=== PATIENT | female | born 1985 | race Caucasian/White ===

== ENCOUNTER 2016-12-27 16:29 | Emergency (ER) | payer SELFPAY ==
--- NOTE | 2016-12-27 16:52 | ER Document Report ---
ED Medical Screen (RME) - General Stated Complaint: EXCESSIVE LEG SWELLING Notes: 31 yo female with hx/o CHF c/o swelling to lower legs. legs are usually swollen, but noted weeping from legs x 24h. + increased shortness of breath, headaches x 3 days. Pt c/o constant, dull achy pain to both lower legs lungs CTA bilat. Sat 97% TRAVEL OUTSIDE OF THE [place] IN LAST 30 DAYS: No - Related Data Allergies/Adverse Reactions: adhesive [Adhesive] Allergy (Verified 12/27/16 16:48) house dust Allergy (Verified 12/27/16 16:48) mold Allergy (Uncoded 12/27/16 16:48) Paper tape Allergy (Uncoded 12/27/16 16:48) pollen Allergy (Uncoded 12/27/16 16:48) Past Medical History - Social History Family history: CAD, DM, Malignancy - Past Medical History Cardiac Medical History: Reports: Hx Congestive Heart Failure, Hx Hypertension Denies: Hx Hypercholesterolemia Pulmonary Medical History: Reports: Hx Asthma Denies: Hx Tuberculosis GI Medical History: Reports: Hx Gastroesophageal Reflux Disease Musculoskeltal Medical History: Reports Hx Arthritis Psychiatric Medical History: Reports: Hx Bipolar Disorder, Hx Depression Past Surgical History: Reports: Hx Cholecystectomy. Denies: Hx Pacemaker - Immunizations Immunizations up to date: No Hx Diphtheria, Pertussis, Tetanus Vaccination: Yes Physical Exam - Vital signs Vitals: Temp Pulse Resp BP Pulse Ox 99.0 F 81 18 158/89 H 97 12/27/16 16:45 12/27/16 16:45 12/27/16 16:45 12/27/16 16:45 12/27/16 16:45 Course - Vital Signs Vital signs: Temp Pulse Resp BP Pulse Ox 99.0 F 81 18 158/89 H 97 12/27/16 16:45 12/27/16 16:45 12/27/16 16:45 12/27/16 16:45 12/27/16 16:45
[2016-12-27 17:16] LABS: ABSOLUTE BASOPHILS # (AUTO) 0.1 10^3/uL (0.0-0.2); ABSOLUTE EOSINOPHILS # (AUTO) 0.1 10^3/uL (0.0-0.6); ABSOLUTE LYMPHOCYTES (AUTO) 2.7 10^3/uL (0.5-4.7); ABSOLUTE MONOCYTES (AUTO) 0.9 10^3/uL (0.1-1.4); ABSOLUTE NEUT (AUTO) 6.6 10^3/uL (1.7-8.2); BASOPHILS % (AUTO) 0.8 % (0-2); EOSINOPHILS % (AUTO) 1.2 % (0-6); HEMATOCRIT 35.3 % (36.0-47.0); HEMOGLOBIN 11.6 g/dL (12.0-15.5); HGB HCT DIFFERENCE -0.5; LYMPHOCYTES % (AUTO) 25.8 % (13-45); MEAN CORPUSCULAR HEMOGLOBIN 25.8 pg (27.0-33.4); MEAN CORPUSCULAR HGB CONC 32.8 g/dL (32.0-36.0); MEAN CORPUSCULAR VOLUME 79 fl (80-97); MONOCYTES % (AUTO) 8.7 % (3-13); RED BLOOD COUNT 4.47 10^6/uL (3.72-5.28); RED CELL DISTRIBUTION WIDTH 14.4 % (11.5-14.0); SEGMENTED NEUTROPHILS % (AUTO) 63.5 % (42-78); WHITE BLOOD COUNT 10.3 10^3/uL (4.0-10.5)
[2016-12-27 17:23] LABS: ALANINE AMINOTRANSFERASE 37 U/L (9-52); ALBUMIN 3.9 g/dL (3.5-5.0); ALKALINE PHOSPHATASE 53 U/L (38-126); ANION GAP 13 (5-19); ASPARTATE AMINO TRANSFERASE 23 U/L (14-36); BILIRUBIN,DIRECT 0.2 mg/dL (0.0-0.4); BILIRUBIN,TOTAL 0.3 mg/dL (0.2-1.3); BLOOD UREA NITROGEN 10 mg/dL (7-20); CALCIUM 9.3 mg/dL (8.4-10.2); CARBON DIOXIDE 26 mmol/L (22-30); CHLORIDE 104 mmol/L (98-107); CREATININE RESULT 0.58 mg/dL (0.52-1.25); GLUCOSE 94 mg/dL (75-110); POTASSIUM 4.2 mmol/L (3.6-5.0); SODIUM 142.5 mmol/L (137-145); TOTAL PROTEIN 6.9 g/dL (6.3-8.2)
[2016-12-27 20:40] LABS: APPEARANCE,URINE CLEAR; BILIRUBIN,URINE NEGATIVE (NEGATIVE); GLUCOSE, URINE NEGATIVE (NEGATIVE); KETONES,URINE NEGATIVE (NEGATIVE); LEUKOCYTE ESTERASE,URINE NEGATIVE (NEGATIVE); NITRITE,URINE NEGATIVE (NEGATIVE); PROTEIN,URINE NEGATIVE (NEGATIVE); URINE SPECIFIC GRAVITY 1.006; UROBILINOGEN,URINE NEGATIVE mg/dL (<2.0)
[2016-12-27] MEDS ORDERED: FUROSEMIDE 80 MG TABLET PO ONE (22:34)
--- NOTE | 2016-12-27 22:40 | ER Document Report ---
ED General - General Chief Complaint: Lip Swelling Stated Complaint: EXCESSIVE LEG SWELLING Notes: Patient is a 31-year-old female presents with complaint of excessive leg swelling. She has a long history of bilateral leg edema. She says it's been worse over last few days. 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 No difficulty breathing. She does have a history of diastolic heart failure. Because of this she takes 80 mg of Lasix every morning to help with her edema. She does not wear compression hose. She does not walk around much. She does not keep her legs elevated at night when sleeping. She's not had any recent changes in her Lasix dosage. She has no other complaints at this time. TRAVEL OUTSIDE OF THE [place] IN LAST 30 DAYS: No - Related Data Allergies/Adverse Reactions: adhesive [Adhesive] Allergy (Verified 12/27/16 16:48) house dust Allergy (Verified 12/27/16 16:48) mold Allergy (Uncoded 12/27/16 16:48) Paper tape Allergy (Uncoded 12/27/16 16:48) pollen Allergy (Uncoded 12/27/16 16:48) Past Medical History - Social History Smoking Status: Former Smoker Chew tobacco use (# tins/day): No Frequency of alcohol use: None Drug Abuse: None Family History: CAD, Hyperlipidemia, Hypertension, Other - Congestive heart failure Patient has suicidal ideation: No Patient has homicidal ideation: No - Past Medical History Cardiac Medical History: Reports: Hx Congestive Heart Failure, Hx Hypertension Denies: Hx Hypercholesterolemia Pulmonary Medical History: Reports: Hx Asthma Denies: Hx Tuberculosis Renal/ Medical History: Denies: Hx Peritoneal Dialysis GI Medical History: Reports: Hx Gastroesophageal Reflux Disease Musculoskeltal Medical History: Reports Hx Arthritis Psychiatric Medical History: Reports: Hx Bipolar Disorder, Hx Depression Past Surgical History: Reports: Hx Cholecystectomy. Denies: Hx Pacemaker - Immunizations Immunizations up to date: No Hx Diphtheria, Pertussis, Tetanus Vaccination: Yes Hx Pneumococcal Vaccination: 10/08/10 Review of Systems - Review of Systems Notes: My Normal Review Basic REVIEW OF SYSTEMS: CONSTITUTIONAL : Denies fever, chills, or sweats. Denies recent illness. EENT: Denies eye, ear, throat, or mouth pain or symptoms. Denies nasal or sinus congestion. RESPIRATORY: Denies cough, cold, or chest congestion. Denies shortness of breath, difficulty breathing, or wheezing. GASTROINTESTINAL: Denies abdominal pain. Denies nausea, vomiting, or diarrhea. Denies constipation. Last BM: GENITOURINARY: Denies difficulty urinating, painful urination, burning, frequency, or blood in urine. MUSCULOSKELETAL: Bilateral lower extremity edema. SKIN: Denies rash or skin lesions. NEUROLOGICAL: Denies altered mental status or loss of consciousness. ALL OTHER SYSTEMS REVIEWED AND NEGATIVE. Physical Exam - Vital signs Vitals: Temp Pulse Resp BP Pulse Ox 99.0 F 81 18 158/89 H 97 12/27/16 16:45 12/27/16 16:45 12/27/16 16:45 12/27/16 16:45 12/27/16 16:45 - Notes Notes: General Appearance: Well nourished, alert, cooperative, no acute distress, no obvious discomfort. Well-appearing. Vitals: reviewed, See vital signs table. Head: no swelling or tenderness to the head Eyes: PERRL, EOMI, Conjuctiva clear Neck: Supple, no neck tenderness, No thyromegaly Lungs: No wheezing, No rales, No rhonci, No accessory muscle use, good air exchange bilaterally. Heart: Normal rate, Regular rythm, No murmur, no rub Extremities: strength 5/5 in all extremities, good pulses in all extremities, no swelling or tenderness in the extremities, bilateral lower extremity edema that is 3+. Some weeping of clear fluid from the right leg. No skin breakdown. Skin: warm, dry, appropriate color, no rash Neuro: speech clear, oriented x 3, normal affect, responds appropriately to questions. Course - Vital Signs Vital signs: Temp Pulse Resp BP Pulse Ox 99.0 F 81 18 158/89 H 97 12/27/16 16:45 12/27/16 16:45 12/27/16 16:45 12/27/16 16:45 12/27/16 16:45 - Laboratory Result Diagrams: 12/27/16 16:55 12/27/16 16:55 Laboratory results interpreted by me: 12/27/16 16:55 Hgb 11.6 L Hct 35.3 L MCV 79 L MCH 25.8 L RDW 14.4 H - Transfer of Care Notes: 12/27/16 22:43 Patient will be discharged home. I will give her an extra dose of Lasix tonight. I'll have her start taking 40 mg at night injection with 80 mg sure he takes the morning. At a long discussion with her about the need to wear compression hose. 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 We will have her start wearing compression hose. I did write prescription for these. I encourage her to follow closely with her primary care doctor on Sunday so that he can recheck her potassium level to make sure that is not decreasing from the extra dose of Lasix. He should encouraged return to ER shows chest pain, difficulty breathing, or worsening swelling. Patient agrees with plan and will be discharged home. Dictation of this chart was performed using voice recognition software; therefore, there may be some unintended grammatical errors. Discharge - Discharge Clinical Impression: Leg edema Qualifiers: Laterality: bilateral Qualified Code(s): R60.0 - Localized edema Condition: Good Disposition: HOME, SELF-CARE Additional Instructions: Please start wearing compression hose. You need to wear these every day to help prevent increased swelling or edema in your legs. Please return to the ER immediately if you start having chest pain or shortness of breath. Please continue to take your 80 mg of Lasix in the morning and start taking 40 mg at night. Please follow-up with your doctor on Sunday so they can recheck your potassium level to make sure it is normal. Please return to ER immediately if you feel that your symptoms are worsening. Prescriptions: Extra Large Knee High Compression Hose 1 each [facility] DAILY #2 Furosemide [Lasix] 40 mg PO QPM #14 tablet Forms: Return to Work
[2016-12-27 23:06] VITALS: BP 150/91
== END 2016-12-27 23:06 | disposition home or self-care (01) ==
LOC: ER 16:29
DX: I11.0 Hypertensive heart disease with heart failure (principal); I50.30 Unspecified diastolic (congestive) heart failure; R60.0 Localized edema; J45.909 Unspecified asthma, uncomplicated; Z79.899 Other long term (current) drug therapy; Z91.048 Other nonmedicinal substance allergy status; Z87.891 Personal history of nicotine dependence
CPT/HCPCS: 36415; 71020; 80053; 81001; 83880; 84703; 85025; 99283

== ENCOUNTER 2017-01-09 13:16 | Emergency (ER) | payer SELFPAY ==
[2017-01-09 13:26] VITALS: BP 123/84
--- NOTE | 2017-01-09 13:44 | ER Document Report ---
ED Extremity Problem, Lower - General Mode of Arrival: Ambulatory Information source: Patient TRAVEL OUTSIDE OF THE [place] IN LAST 30 DAYS: No - HPI Patient complains to provider of: Swelling Location: Leg - bilateral Associated symptoms: Other - see notes above - General Chief Complaint: Leg Swelling Stated Complaint: LEG PAIN Notes: 31 year old female with history of CHF presents to the ED complaining of bilateral leg swelling and red "dots" with odorous drainage. Patient reports that she was at work when co-workers complained about the odor and asked her to get her legs evaluated and a note clearing her for work. Patient is complaining of minor itching to the bilateral legs. Patient denies any recent trip. Patient denies shortness of breath. Patient is on Lasix (80mg day, 40mg night). (SUSIE BERGMAN) - Related Data Allergies/Adverse Reactions: adhesive [Adhesive] Allergy (Verified 01/09/17 13:31) house dust Allergy (Verified 01/09/17 13:31) mold Allergy (Uncoded 01/09/17 13:31) Paper tape Allergy (Uncoded 01/09/17 13:31) pollen Allergy (Uncoded 01/09/17 13:31) Past Medical History - General Information source: Patient - Social History Smoking Status: Unknown if Ever Smoked Family History: CAD, Hyperlipidemia, Hypertension, Other - Congestive heart failure Patient has suicidal ideation: No Patient has homicidal ideation: No - Past Medical History Cardiac Medical History: Reports: Hx Congestive Heart Failure, Hx Hypertension Denies: Hx Hypercholesterolemia Pulmonary Medical History: Reports: Hx Asthma Denies: Hx Tuberculosis Renal/ Medical History: Denies: Hx Peritoneal Dialysis GI Medical History: Reports: Hx Gastroesophageal Reflux Disease Musculoskeltal Medical History: Reports Hx Arthritis Psychiatric Medical History: Reports: Hx Bipolar Disorder, Hx Depression Past Surgical History: Reports: Hx Cholecystectomy. Denies: Hx Pacemaker - Immunizations Immunizations up to date: No Hx Diphtheria, Pertussis, Tetanus Vaccination: Yes Hx Pneumococcal Vaccination: 10/08/10 Review of Systems - Review of Systems Constitutional: No symptoms reported EENT: No symptoms reported Cardiovascular: No symptoms reported Respiratory: No symptoms reported. denies: Short of breath Gastrointestinal: No symptoms reported Genitourinary: No symptoms reported Female Genitourinary: No symptoms reported Musculoskeletal: See HPI, Leg swelling - bilateral with odorous drainage Skin: See HPI, Lesions - bilateral legs Hematologic/Lymphatic: No symptoms reported Neurological/Psychological: No symptoms reported -: Yes All other systems reviewed and negative Physical Exam - General General appearance: Alert In distress: None - HEENT Head: Normocephalic, Atraumatic Eyes: Normal Extraocular movements intact: Yes Pupils: PERRL - Respiratory Respiratory status: No respiratory distress Breath sounds: Normal - Cardiovascular Rhythm: Regular Heart sounds: Normal auscultation - Abdominal Inspection: Normal - Back Back: Normal - Extremities General upper extremity: Normal inspection, Normal ROM General lower extremity: Edema - bilateral non-pitting edema with no sign of weeping or erythema., Other - Small lesions consistent with excoriation. No: Normal inspection - Neurological Neuro grossly intact: Yes Cognition: Normal Orientation: AAOx4 [place] Coma Scale Eye Opening: Spontaneous [place] Coma Scale Verbal: Oriented [place] Coma Scale Motor: Obeys Commands [place] Coma Scale Total: 15 Speech: Normal - Psychological Associated symptoms: Normal affect, Normal mood - Skin Skin Temperature: Warm Skin Moisture: Dry Skin Color: Normal Course - Re-evaluation Re-evalutation: 01/09/17 Patient appears well. Nonpitting edema of legs. Patient is already on 120 mg of Lasix daily. Has areas consistent with excoriation. Patient is in no acute distress. No evidence for heart failure exacerbation. The patient states that she was told at work that she has a smell. Is requesting a work for note that the smell is due to wheezing from her legs. The patient's legs are not weeping currently. I have told the patient that she is to wear compression stockings and in the meantime keep her legs covered so that she does not get an infection because she has some open excoriation areas. Patient is able to return to work otherwise. Appears well. Stable for discharge. (IKER LAGOS) - Vital Signs Vital signs: Temp Pulse Resp BP Pulse Ox 98.5 F 88 14 123/84 95 01/09/17 13:23 01/09/17 13:23 01/09/17 13:23 01/09/17 13:23 01/09/17 13:23 Discharge - Discharge Clinical Impression: Leg swelling Condition: Stable Disposition: HOME, SELF-CARE Instructions: Dependent Edema ([facility]) Additional Instructions: Please keep the legs covered so that they do not become infected. Please start wearing compression stockings as soon as you are able. In the meantime, you can wear Howie bandages. Please start at the bottom of your leg and work your way up with the HOWIE wrap. Forms: Return to Work Scribe Attestation: 01/09/17 20:15 I personally performed the services described in the documentation, reviewed and edited the documentation which was dictated to the scribe in my presence, and it accurately records my words and actions. (IKER LAGOS) Scribe Documentation - Scribe Written by Marisol:: Marisol Lopez, 01/09/2017 1422 acting as scribe for :: Cady
--- NOTE | 2017-01-09 13:46 | ER Document Report ---
ED Extremity Problem, Lower - General Chief Complaint: Leg Swelling Stated Complaint: LEG PAIN TRAVEL OUTSIDE OF THE [place] IN LAST 30 DAYS: No - Related Data Allergies/Adverse Reactions: adhesive [Adhesive] Allergy (Verified 01/09/17 13:31) house dust Allergy (Verified 01/09/17 13:31) mold Allergy (Uncoded 01/09/17 13:31) Paper tape Allergy (Uncoded 01/09/17 13:31) pollen Allergy (Uncoded 01/09/17 13:31) Past Medical History - Social History Family History: CAD, Hyperlipidemia, Hypertension, Other - Congestive heart failure Patient has suicidal ideation: No Patient has homicidal ideation: No - Past Medical History Cardiac Medical History: Reports: Hx Congestive Heart Failure, Hx Hypertension Denies: Hx Hypercholesterolemia Pulmonary Medical History: Reports: Hx Asthma Denies: Hx Tuberculosis Renal/ Medical History: Denies: Hx Peritoneal Dialysis GI Medical History: Reports: Hx Gastroesophageal Reflux Disease Musculoskeltal Medical History: Reports Hx Arthritis Psychiatric Medical History: Reports: Hx Bipolar Disorder, Hx Depression Past Surgical History: Reports: Hx Cholecystectomy. Denies: Hx Pacemaker - Immunizations Immunizations up to date: No Hx Diphtheria, Pertussis, Tetanus Vaccination: Yes Hx Pneumococcal Vaccination: 10/08/10 Physical Exam - Vital signs Vitals: Temp Pulse Resp BP Pulse Ox 98.5 F 88 14 123/84 95 01/09/17 13:23 01/09/17 13:23 01/09/17 13:23 01/09/17 13:23 01/09/17 13:23 Course - Vital Signs Vital signs: Temp Pulse Resp BP Pulse Ox 98.5 F 88 14 123/84 95 01/09/17 13:23 01/09/17 13:23 01/09/17 13:23 01/09/17 13:23 01/09/17 13:23 Discharge - Discharge Clinical Impression: Leg swelling Condition: Stable Disposition: HOME, SELF-CARE Instructions: Dependent Edema ([facility]) Additional Instructions: Please keep the legs covered so that they do not become infected. Please start wearing compression stockings as soon as you are able. In the meantime, you can wear Howie bandages. Please start at the bottom of your leg and work your way up with the HOWIE wrap. Forms: Return to Work
== END 2017-01-09 13:53 | disposition home or self-care (01) ==
LOC: ER 13:16
DX: M79.89 Other specified soft tissue disorders (principal); M79.604 Pain in right leg; M79.605 Pain in left leg; Z79.899 Other long term (current) drug therapy
CPT/HCPCS: 99283

== ENCOUNTER 2017-02-27 16:45 | Emergency (ER) | payer SELFPAY ==
[2017-02-27] MEDS ORDERED: ASPIRIN 81 MG TABLET, CHEWABLE PO ONE (18:33)
--- NOTE | 2017-02-27 18:33 | ER Document Report ---
ED Medical Screen (RME) - General TRAVEL OUTSIDE OF THE [place] IN LAST 30 DAYS: No <PRAKASH KNIGHT - Last Filed: 02/27/17 20:38> <RUPALI RODRIGUEZ - Last Filed: 02/27/17 21:02> - General Chief Complaint: Edema Stated Complaint: FEET,HANDS,LEGS SWELLING,HEADACHE Time Seen by Provider: 02/27/17 18:27 Notes: 31-year-old female presenting to the emergency department for lower extremity edema and hand swelling. Patient has history of CHF with her last flareup being 1 year ago. Patient states she takes 120 mg of Lasix per day; 60 mg in the morning and 60 mg in the afternoon. Patient states she also has some shortness of breath with movement/activity. When she lays flat she has a dry cough. Patient also has had some chest pain over the past 3 days. Patient is a former smoker and states on rare occasions she uses marijuana for her anxiety. Patient's mother and father have because of cardiac related problems. (PRAKASH KNIGHT) - Related Data Allergies/Adverse Reactions: adhesive [Adhesive] Allergy (Verified 01/09/17 13:31) house dust Allergy (Verified 01/09/17 13:31) mold Allergy (Uncoded 01/09/17 13:31) Paper tape Allergy (Uncoded 01/09/17 13:31) pollen Allergy (Uncoded 01/09/17 13:31) Past Medical History - Social History Family history: CAD, DM, Malignancy - Past Medical History Cardiac Medical History: Reports: Hx Congestive Heart Failure, Hx Hypertension Pulmonary Medical History: Reports: Hx Asthma Renal/ Medical History: Denies: Hx Peritoneal Dialysis GI Medical History: Reports: Hx Gastroesophageal Reflux Disease Musculoskeltal Medical History: Reports Hx Arthritis Psychiatric Medical History: Reports: Hx Bipolar Disorder, Hx Depression Past Surgical History: Reports: Hx Cholecystectomy. Denies: Hx Pacemaker - Immunizations Immunizations up to date: No Hx Diphtheria, Pertussis, Tetanus Vaccination: Yes <PRAKASH KNIGHT - Last Filed: 02/27/17 20:38> Physical Exam <PRAKASH KNIGHT - Last Filed: 02/27/17 20:38> <RUPALI RODRIGUEZ - Last Filed: 02/27/17 21:02> - Vital signs Vitals: Temp Pulse Resp BP Pulse Ox 97.9 F 75 18 149/79 H 100 02/27/17 17:24 02/27/17 17:24 02/27/17 17:24 02/27/17 17:24 02/27/17 17:24 - Notes Notes: GENERAL: Alert, interacts well. No acute distress. LUNGS: Clear to auscultation bilaterally, no wheezes, rales, or rhonchi. No respiratory distress. HEART: Regular rate and rhythm. No murmurs, gallops, or rubs. EXTREMITIES: Moves all 4 extremities spontaneously. 3+ pitting edema to the lower extremities bilaterally extending past the knee. Swelling in the fingers but able to remove rings. NEUROLOGICAL: Alert and oriented x3. Normal speech. (PRAKASH KNIGHT) Course - Laboratory Result Diagrams: 02/27/17 18:55 02/27/17 18:55 <PRAKASH KNIGHT - Last Filed: 02/27/17 20:38> - Laboratory Result Diagrams: 02/27/17 18:55 02/27/17 18:55 <RUPALI RODRIGUEZ - Last Filed: 02/27/17 21:02> - Vital Signs Vital signs: Temp Pulse Resp BP Pulse Ox 97.9 F 75 21 H 145/81 H 98 02/27/17 17:24 02/27/17 17:24 02/27/17 19:36 02/27/17 19:30 02/27/17 19:36 - Laboratory Laboratory results interpreted by me: 02/27/17 02/27/17 02/27/17 18:55 18:55 18:55 MCH 25.9 L RDW 15.0 H BUN 6 L ALT 54 H NT-Pro-B Natriuret Pep 266 H Scribe Documentation - Scribe Written by Scribe:: Marisol Tena, 02/27/17 19:00 acting as scribe for :: Erin <PRAKASH KNIGHT - Last Filed: 02/27/17 20:38>
[2017-02-27 19:08] LABS: ABSOLUTE BASOPHILS # (AUTO) 0.1 10^3/uL (0.0-0.2); ABSOLUTE EOSINOPHILS # (AUTO) 0.2 10^3/uL (0.0-0.6); ABSOLUTE LYMPHOCYTES (AUTO) 2.6 10^3/uL (0.5-4.7); ABSOLUTE MONOCYTES (AUTO) 0.5 10^3/uL (0.1-1.4); ABSOLUTE NEUT (AUTO) 6.1 10^3/uL (1.7-8.2); BASOPHILS % (AUTO) 0.7 % (0-2); EOSINOPHILS % (AUTO) 1.7 % (0-6); HEMATOCRIT 38.5 % (36.0-47.0); HEMOGLOBIN 12.5 g/dL (12.0-15.5); MEAN CORPUSCULAR HEMOGLOBIN 25.9 pg (27.0-33.4); MEAN CORPUSCULAR HGB CONC 32.6 g/dL (32.0-36.0); MEAN CORPUSCULAR VOLUME 80 fl (80-97); RED BLOOD COUNT 4.85 10^6/uL (3.72-5.28); SEGMENTED NEUTROPHILS % (AUTO) 64.6 % (42-78); WHITE BLOOD COUNT 9.4 10^3/uL (4.0-10.5)
--- NOTE | 2017-02-27 19:21 | EKG REPORT ---
SEVERITY:- ABNORMAL ECG - SINUS RHYTHM NONSPECIFIC INTRAVENTRICULAR CONDUCTION DELAY INFERIOR Q WAVES, PROBABLY NORMAL VARIATION : Confirmed by: Tay Barron MD 27-Feb-2017 19:20:23
--- NOTE | 2017-02-27 19:23 | RADIOLOGY REPORT (SQ) ---
EXAM DESCRIPTION: CHEST SINGLE VIEW COMPLETED DATE/TIME: 02/27/2017 7:14 pm REASON FOR STUDY: increasing edema, chest pain COMPARISON: 12/27/2016 EXAM PARAMETERS: NUMBER OF VIEWS: One view. TECHNIQUE: Single frontal radiographic view of the chest acquired. RADIATION DOSE: NA LIMITATIONS: None. FINDINGS: LUNGS AND PLEURA: No opacities, masses or pneumothorax. No pleural effusion. MEDIASTINUM AND HILAR STRUCTURES: No masses. Contour normal. HEART AND VASCULAR STRUCTURES: Heart normal in size. Normal vasculature. BONES: No acute findings. HARDWARE: None in the chest. OTHER: No other significant finding. IMPRESSION: NO ACUTE RADIOGRAPHIC FINDING IN THE CHEST. TECHNICAL DOCUMENTATION: JOB ID: [id number]
[2017-02-27 19:24] LABS: ALANINE AMINOTRANSFERASE 54 U/L (9-52); ALBUMIN 3.9 g/dL (3.5-5.0); ALKALINE PHOSPHATASE 58 U/L (38-126); ANION GAP 8 (5-19); ASPARTATE AMINO TRANSFERASE 29 U/L (14-36); BILIRUBIN,DIRECT 0.4 mg/dL (0.0-0.4); BILIRUBIN,TOTAL 0.5 mg/dL (0.2-1.3); BLOOD UREA NITROGEN 6 mg/dL (7-20); CALCIUM 9.3 mg/dL (8.4-10.2); CARBON DIOXIDE 29 mmol/L (22-30); CHLORIDE 103 mmol/L (98-107); CREATINE KINASE 58 U/L (30-135); CREATININE RESULT 0.61 mg/dL (0.52-1.25); GLUCOSE 90 mg/dL (75-110); POTASSIUM 3.9 mmol/L (3.6-5.0); SODIUM 140.1 mmol/L (137-145); TOTAL PROTEIN 7.1 g/dL (6.3-8.2)
--- NOTE | 2017-02-27 19:29 | ER Document Report ---
ED General - General Chief Complaint: Edema Stated Complaint: FEET,HANDS,LEGS SWELLING,HEADACHE Time Seen by Provider: 02/27/17 18:27 Notes: Patient is a 31-year-old female with a history of diastolic heart failure, hypertension, anxiety/bipolar, GERD that comes emergency department for chief complaint of lower extremity swelling. She states she has slightly increased dyspnea on exertion from her baseline, she states she noticed this yesterday when doing things around the office, she denies current shortness of breath. She states she had an episode yesterday while she was eating where she had nausea and some discomfort in her chest, she states that when she lies down she has an irritated cough, she denies chest pain, vomiting, or any other symptoms otherwise. Patient denies fever. Patient spends most of her time sitting, has limited walking, does not elevate her feet, does not wear compression stockings. She is on Lasix 60 mg in the morning and 60 mg at night, Coreg, states she is compliant with her medications. She states her insurance has made her change her primary care provider and she is still waiting to see the new one. She denies smoking, personal or family history of VA. Last significant CHF exacerbation 1 year ago reportedly. TRAVEL OUTSIDE OF THE [place] IN LAST 30 DAYS: No - Related Data Allergies/Adverse Reactions: adhesive [Adhesive] Allergy (Verified 01/09/17 13:31) house dust Allergy (Verified 01/09/17 13:31) mold Allergy (Uncoded 01/09/17 13:31) Paper tape Allergy (Uncoded 01/09/17 13:31) pollen Allergy (Uncoded 01/09/17 13:31) Past Medical History - General Information source: Patient - Social History Smoking Status: Never Smoker Frequency of alcohol use: None Drug Abuse: None Lives with: Family Family History: CAD, Hyperlipidemia, Hypertension, Other - Congestive heart failure - Past Medical History Cardiac Medical History: Reports: Hx Congestive Heart Failure, Hx Hypertension Denies: Hx Hypercholesterolemia Pulmonary Medical History: Reports: Hx Asthma Denies: Hx Tuberculosis Renal/ Medical History: Denies: Hx Peritoneal Dialysis GI Medical History: Reports: Hx Gastroesophageal Reflux Disease Musculoskeltal Medical History: Reports Hx Arthritis Psychiatric Medical History: Reports: Hx Bipolar Disorder, Hx Depression Past Surgical History: Reports: Hx Cholecystectomy. Denies: Hx Pacemaker - Immunizations Immunizations up to date: No Hx Diphtheria, Pertussis, Tetanus Vaccination: Yes Hx Pneumococcal Vaccination: 10/08/10 Review of Systems - Review of Systems Constitutional: No symptoms reported EENT: No symptoms reported Cardiovascular: See HPI Respiratory: See HPI Gastrointestinal: See HPI Genitourinary: No symptoms reported Female Genitourinary: No symptoms reported Musculoskeletal: No symptoms reported Skin: No symptoms reported Hematologic/Lymphatic: No symptoms reported Neurological/Psychological: No symptoms reported Physical Exam - Vital signs Vitals: Temp Pulse Resp BP Pulse Ox 97.9 F 75 18 149/79 H 100 02/27/17 17:24 02/27/17 17:24 02/27/17 17:24 02/27/17 17:24 02/27/17 17:24 Interpretation: Normal - General General appearance: Appears well In distress: None - Smiling, talkative, well-appearing - HEENT Head: Normocephalic, Atraumatic Eyes: Normal Conjunctiva: Normal Extraocular movements intact: Yes Eyelashes: Normal Pupils: PERRL Mouth/Lips: Normal Mucous membranes: Normal Pharynx: Normal Neck: Normal - Respiratory Respiratory status: No respiratory distress Chest status: Nontender Breath sounds: Normal. No: Decreased air movement, Rales, Wheezing Chest palpation: Normal - Cardiovascular Rhythm: Regular. No: Tachycardia Heart sounds: Normal auscultation, S1 appreciated, S2 appreciated Murmur: No - Abdominal Inspection: Normal Distension: No distension Bowel sounds: Normal Tenderness: Nontender. No: Tender, Guarding Organomegaly: No organomegaly - Back Back: Normal, Nontender. No: Tender, CVA tenderness - Extremities General upper extremity: Normal inspection, Nontender, Normal strength, Normal temperature. No: Edema General lower extremity: Other - Borderline bilateral lower extremity swelling with no significant or pitting edema, normal neurovascular exam, no erythema, tenderness, or other abnormality noted. - Neurological Neuro grossly intact: Yes Cognition: Normal Orientation: AAOx4 [place] Coma Scale Eye Opening: Spontaneous Carlos Coma Scale Verbal: Oriented Carlos Coma Scale Motor: Obeys Commands [place] Coma Scale Total: 15 Speech: Normal Motor strength normal: LUE, RUE, LLE, RLE Sensory: Normal - Psychological Associated symptoms: Normal affect, Normal mood - Skin Skin Temperature: Warm Skin Moisture: Dry Skin Color: Normal Course - Re-evaluation Re-evalutation: EKG with no significant change from prior, no T-wave or ST segment changes in consecutive leads, cardiac enzymes negative, chest x-ray clear with no evidence of vascular congestion, CBC, chemistry unremarkable, BNP is only very mildly elevated. Patient has some lower extremity swelling, very slight pitting edema bilaterally and equal. Patient is not performing lifestyle management as appropriate. Patient given dose of Lasix to her IV, advised to continue her medications, discussed adjustments at home and work to help reduce swelling, discussed potassium supplement, discussed follow-up, discussed return precautions, patient also given omeprazole because of symptoms suggesting gastrointestinal source (nausea with eating, coughing when lying down). Patient is smiling, talkative, ambulates without any dyspnea on my evaluation, and is very well-appearing. Stable for discharge. - Vital Signs Vital signs: Temp Pulse Resp BP Pulse Ox 97.9 F 75 22 H 122/110 H 97 02/27/17 17:24 02/27/17 17:24 02/27/17 21:40 02/27/17 21:01 02/27/17 21:40 - Laboratory Result Diagrams: 02/27/17 18:55 02/27/17 18:55 Laboratory results interpreted by me: 02/27/17 02/27/17 02/27/17 18:55 18:55 18:55 MCH 25.9 L RDW 15.0 H BUN 6 L ALT 54 H NT-Pro-B Natriuret Pep 266 H Discharge - Discharge Clinical Impression: Swelling of both lower extremities, Nausea, Shortness of breath, Cough Condition: Stable Disposition: HOME, SELF-CARE Additional Instructions: Your workup shows no acute concerning abnormalities. Continue your current Lasix dose, make sure that you have a potassium supplement , increase walking, increased leg elevation, wear the compression stockings especially at night. I also recommend taking the Prescribed omeprazole for upper abdominal symptoms. Take this daily for best results. Follow-up with primary care for additional management. Return to emergency department for any concerning or worsening symptoms including difficulty breathing, fever, vomiting, etc. Prescriptions: Omeprazole 40 mg PO DAILY #30 capsule.dr Forms: Return to Work
[2017-02-27 19:36] LABS: CREATINE KINASE MB 1.31 ng/mL (<4.55); TROPONIN I < 0.012 ng/mL
[2017-02-27] MEDS ORDERED: FUROSEMIDE INJ/PF 40 MG/4 ML SDV IV ONE (20:40)
[2017-02-27] MEDS ORDERED: SUCRALFATE 1 GM TABLET PO ONE (20:41)
[2017-02-27 21:44] VITALS: BP 122/110
== END 2017-02-27 22:09 | disposition home or self-care (01) ==
LOC: ER 16:45
DX: I11.0 Hypertensive heart disease with heart failure (principal); I50.30 Unspecified diastolic (congestive) heart failure; J45.909 Unspecified asthma, uncomplicated; R06.02 Shortness of breath; R06.09 Other forms of dyspnea; R05 Cough; R09.89 Other specified symptoms and signs involving the circulatory and respiratory systems; R11.0 Nausea; Z79.899 Other long term (current) drug therapy; Z91.048 Other nonmedicinal substance allergy status; Z82.49 Family history of ischemic heart disease and other diseases of the circulatory system
CPT/HCPCS: 93005; 99285; 96374; 36415; 82553; 82550; 85025; 80053; 84484; 83880; 71010; 93010; J1940

== ENCOUNTER → 2017-11-05 | Outpatient (CLI) | payer BC ==
--- NOTE | 2017-11-05 19:02 | XCELERA REPORT ---
[address] [address] Transthoracic Echocardiogram Report Name: LISANDRA BARRERA Age: 32 yrs Gender: Female : 1985 Patient Status: Outpatient Patient Location: Study Date: 11/05/2017 01:08 PM Height: 69 in Weight: 370 lb BSA: 2.7 m2 Reason For Study: HEART FAILURE Ordering Physician: AJITH MANN Performed By: Carlene Burkett Interpretation Summary no signif. post pericardial effusion. AV configuration not visualised, No suspected, no AR. Mild MAC, no MR, no MS, normal LA size. MIld concentric LVH with probably hypokinetic inferoseptum, no other regional wall motion abnormality, LVEF biplane 64% with no LV diastolic dysfunction, no LV enlargement. RH poorly seen no TR, RVSP not derived. MMode/2D Measurements & Calculations RVDd: 3.5 cm LVIDd: 3.4 cm FS: 19.9 % Ao root diam: IVSd: 1.1 cm LVIDs: 2.8 cm EDV(Teich): 2.8 cm LVPWd: 1.1 cm 48.8 ml Ao root area: ESV(Teich): 28.4 ml 6.2 cm2 EF(Teich): LA dimension: 41.8 % 2.8 cm LVLd ap4: 8.4 cm SV(MOD-sp4): 51.0 ml LA A2Cs: LA A4Cs: 12.3 cm2 EDV(MOD-sp4): 13.2 cm2 80.0 ml LVLs ap4: 7.4 cm ESV(MOD-sp4): 29.0 ml EF(MOD-sp4): 63.7 % LA length: 5.0 cmLA Vol Index (BP): LA Volume: 10.3 ml/m2 27.5 ml Doppler Measurements & Calculations MV E max silvia: MV P1/2t max silvia: Ao V2 max: LV V1 max P.6 cm/sec 72.1 cm/sec 105.5 cm/sec 3.3 mmHg MV A max silvia: MV P1/2t: 89.1 msec Ao max PG: LV V1 max: 38.0 cm/sec 4.5 mmHg 90.8 cm/sec MV E/A: 1.9 MVA(P1/2t): 2.5 cm2 MV dec slope: 237.0 cm/sec2 PA V2 max: 83.9 cm/sec PA max P.8 mmHg Atria The left atrial size is normal. Mitral Valve There is mild mitral leaflet calcification. There is no evidence of mitral valve prolapse. There is no mitral valve stenosis. There is no mitral regurgitation noted. Aortic Valve The aortic valve is not well visualized secondary to technical limitations. There is no aortic valve stenosis. No aortic regurgitation is present. Great Vessels The aortic root is normal size. Effusions There is no pericardial effusion. I WMSI = 1.13 % Normal = 88 Segments Size X - Cannot 2 - 4 - 1-2 small Interpret 1 - Normal Hypokinetic 3 - AkineticDyskinetic 3-5 moderate 5 - 6-14 large Aneurysmal 15-16 diffuse : AJITH MANN > Tay Barron
== END ==
LOC: SP 12:53
PROVIDERS: ATTEND Nurse Practitioner Acute Care
DX: I50.9 Heart failure, unspecified (principal)
CPT/HCPCS: 93306

== ENCOUNTER 2018-01-04 09:23 | Emergency (ER) | payer BC, OTHER ==
[2018-01-04 09:28] VITALS: BP 146/92
[2018-01-04] MEDS ORDERED: DEXAMETHASONE SOD PHOS INJ 10 MG/1 ML VIAL IM ONE (09:48)
--- NOTE | 2018-01-04 09:54 | ER Document Report ---
ED ENT - General Chief Complaint: Sore Throat Stated Complaint: SORE THROAT Time Seen by Provider: 01/04/18 09:40 Mode of Arrival: Ambulatory Information source: Patient Notes: 32-year-old female presents to ED for complaint of pain in sinuses right ear and sore throat 3 days. States she states she has a minimal cough had a temperature of 100.9 yesterday. She is alert oriented speaking in full sentences. She does have a history of blood pressure problems. Respirations regular label TRAVEL OUTSIDE OF THE [place] IN LAST 30 DAYS: No - HPI Patient complains to provider of: Ear problem, Nose problem, Throat problem Onset: Other Onset/Duration: Gradual - 4 days Quality of pain: Achy, Sharp Severity: Moderate Pain Level: 3 Context: Recent Illness Location of pain: Ears, Nose, Sinus, Throat Associated symptoms: Congestion, Cough, Ear pain, Fever, Headache, Runny nose, Sinus pain, Sinus drainage, Sore throat Similar symptoms previously: Yes Recently seen / treated by doctor: Yes - Related Data Allergies/Adverse Reactions: adhesive [Adhesive] Allergy (Verified 01/04/18 09:26) house dust Allergy (Verified 01/04/18 09:26) mold Allergy (Uncoded 01/04/18 09:26) Paper tape Allergy (Uncoded 01/04/18 09:26) pollen Allergy (Uncoded 01/04/18 09:26) Past Medical History - General Information source: Patient - Social History Smoking Status: Former Smoker Cigarette use (# per day): No Chew tobacco use (# tins/day): No Smoking Education Provided: No Frequency of alcohol use: Social Drug Abuse: None Occupation: Fraud investigation Lives with: Friend Family History: CAD, Hyperlipidemia, Hypertension, Other - Congestive heart failure Patient has suicidal ideation: No Patient has homicidal ideation: No - Past Medical History Cardiac Medical History: Reports: Hx Congestive Heart Failure, Hx Hypertension Pulmonary Medical History: Reports: Hx Asthma EENT Medical History: Reports: None Neurological Medical History: Reports: None Endocrine Medical History: Reports: None Renal/ Medical History: Reports: None Malignancy Medical History: Reports: None GI Medical History: Reports: Hx Gastroesophageal Reflux Disease Musculoskeltal Medical History: Reports Hx Arthritis Skin Medical History: Reports None Psychiatric Medical History: Reports: Hx Bipolar Disorder, Hx Depression Traumatic Medical History: Reports: None Infectious Medical History: Reports: None Past Surgical History: Reports: Hx Cholecystectomy - Immunizations Immunizations up to date: No Hx Diphtheria, Pertussis, Tetanus Vaccination: Yes Hx Pneumococcal Vaccination: 10/08/10 Review of Systems - Review of Systems Constitutional: No symptoms reported, Fever, Recent illness EENT: Ear pain, Nose congestion, Nose discharge, Sinus pressure, Sinus discharge , Throat pain Cardiovascular: No symptoms reported Respiratory: No symptoms reported Gastrointestinal: No symptoms reported Genitourinary: No symptoms reported Female Genitourinary: No symptoms reported Musculoskeletal: No symptoms reported Skin: No symptoms reported Hematologic/Lymphatic: No symptoms reported Neurological/Psychological: No symptoms reported -: Yes All other systems reviewed and negative Physical Exam - Vital signs Vitals: Temp Pulse Resp BP Pulse Ox 98.3 F 92 20 146/92 H 97 01/04/18 09:26 01/04/18 09:26 01/04/18 09:26 01/04/18 09:26 01/04/18 09:26 Interpretation: Normal - General General appearance: Appears well, Alert - HEENT Head: Normocephalic, Atraumatic Eyes: Normal Pupils: PERRL Ears: Normal External canal: Normal Tympanic membrane: Normal Sinus: Frontal, Mastoid, Tenderness Nasal: Purulent discharge, Swelling Mouth/Lips: Normal Mucous membranes: Normal Pharynx: Normal Neck: Normal - Respiratory Respiratory status: No respiratory distress Chest status: Nontender Breath sounds: Nonproductive cough Chest palpation: Normal - Cardiovascular Rhythm: Regular Heart sounds: Normal auscultation Murmur: No - Abdominal Inspection: Normal Distension: No distension Bowel sounds: Normal Tenderness: Nontender Organomegaly: No organomegaly - Back Back: Normal, Nontender - Extremities General upper extremity: Normal inspection, Nontender, Normal color, Normal ROM , Normal temperature General lower extremity: Normal inspection, Nontender, Normal color, Normal ROM , Normal temperature, Normal weight bearing. No: Nini's sign - Neurological Neuro grossly intact: Yes Cognition: Normal Orientation: AAOx4 [place] Coma Scale Eye Opening: Spontaneous [place] Coma Scale Verbal: Oriented Carlos Coma Scale Motor: Obeys Commands [place] Coma Scale Total: 15 Speech: Normal Motor strength normal: LUE, RUE, LLE, RLE Sensory: Normal - Psychological Associated symptoms: Normal affect, Normal mood - Skin Skin Temperature: Warm Skin Moisture: Dry Skin Color: Normal Course - Re-evaluation Re-evalutation: 01/04/18 09:53 We will treat with Decadron injection and prescription for amoxicillin. Will discharge home. Patient states she has facial pain that goes to her ears her eyes and her head. - Vital Signs Vital signs: Temp Pulse Resp BP Pulse Ox 98.3 F 92 20 146/92 H 97 01/04/18 09:26 01/04/18 09:26 01/04/18 09:26 01/04/18 09:26 01/04/18 09:26 Discharge - Discharge Clinical Impression: Sinusitis Qualifiers: Sinusitis location: unspecified location Chronicity: acute Recurrence: not specified as recurrent Qualified Code(s): J01.90 - Acute sinusitis, unspecified Condition: Stable Disposition: HOME, SELF-CARE Instructions: Family Physicians / Practices Additional Instructions: Sinusitis You have sinusitis, an infection of the sinus cavities of the face. The sinuses are air-filled chambers which open into the inside of the nose. Bacteria and pus fill a sinus, causing pain, drainage, and fever. Sinusitis is treated with antibiotics. Often, expectorants (to thin the sinus mucous) or decongestants (to reduce swelling) are prescribed as well. Healing requires seven to 10 days. Avoid chemical fumes, pollens, dusts, and smoke (especially cigarette smoke ). Keep the air humidified in your bedroom and work area and take plenty of liquids by mouth. This condition can be serious if the infection spreads. If your symptoms worsen, or if you develop severe headache, high fever, stiff neck, or a rash, you must call the doctor or return for re-evaluation. STEROID MEDICATION: You have been given an injection of or oral medicine of the cortisone/ steroid class. This medication is used to control inflammation or allergy. Stone t is usually only given for a short period of time, until the acute process subsides. There are usually no side effects from short-term use of cortisone-like medications. Some persons feel an increased sense of well-being and are not sleepy at bedtime. Long-term use of cortisone medications is best avoided, unless required for a severe condition. If your condition does not remit, or relapses after the course of corticosteroid medication, you should consult your physician. USE OF ACETAMINOPHEN (Tylenol): Acetaminophen may be taken for pain relief or fever control. It's much safer than aspirin, offering a wider range of "safe" dosages. It is safe during . Some brand names are Tylenol, Panadol, Datril, Anacin 3, Tempra, and Liquiprin. Acetaminophen can be repeated every four hours. The following are maximum recommended dosages: >89 pounds or adults 650 mg to 900 mg Acetaminophen can be repeated every four hours. Maximum dose not to exceed 4000 mg a day. Amoxicillin Amoxicillin is a member of the penicillin family. It covers the germs likely to cause ear, bronchial, and urinary infections better than plain penicillin. Amoxicillin can be taken without regard to meals. Nausea after taking the medication is rare, but can occur. Diarrhea can occur, particularly in small children. Vaginal yeast infections and oral thrush in infants are also common. Contact your physician if these problems occur. Allergy to penicillins is common. If you have had an allergic reaction to any drug of the penicillin family, you should never take any other penicillin. Notify your doctor at once if you develop hives, itching, swelling, faintness, or shortness of breath. Less serious side effects can include nausea or diarrhea. FOLLOW-UP CARE: If you have been referred to a physician for follow-up care, call the physician s office for an appointment as you were instructed or within the next two days. If you experience worsening or a significant change in your symptoms, notify the physician immediately or return to the Emergency Department at any time for re-evaluation. Prescriptions: Amoxicillin 875 mg PO Q12 #14 tablet Forms: Elevated Blood Pressure, Return to Work Referrals: AJITH MANN NP [Primary Care Provider] - Follow up as needed
== END 2018-01-04 10:21 | disposition home or self-care (01) ==
LOC: ER 09:23
DX: J01.90 Acute sinusitis, unspecified (principal); J02.9 Acute pharyngitis, unspecified; H92.01 Otalgia, right ear; R05 Cough; R50.9 Fever, unspecified; Z87.891 Personal history of nicotine dependence; I10 Essential (primary) hypertension; J45.909 Unspecified asthma, uncomplicated
CPT/HCPCS: 99282; 96372; J1100

== ENCOUNTER 2018-03-21 13:38 | Emergency (ER) | payer BC, OTHER ==
[2018-03-21 13:43] VITALS: BP 137/79
[2018-03-21] MEDS ORDERED: DEXAMETHASONE SOD PHOS INJ 10 MG/1 ML VIAL IM ONE (14:18)
--- NOTE | 2018-03-21 14:25 | ER Document Report ---
ED General - General Chief Complaint: Abdominal Pain Stated Complaint: VOMITING/DIARRHEA Time Seen by Provider: 03/21/18 14:00 Notes: 32-year-old female here with multiple complaints: SINUS pressure Having sinus pressure ongoing for the past few days accompanied with congestion and runny nose. She has a history of sinus issues and has tried Benadryl this time around with good relief however it makes her sleepy so she has been avoiding it as much as possible. In the past, she states that steroids have helped tremendously. She denies diabetes. NAUSEA VOMITING DIARRHEA Having nausea vomiting diarrhea for the past few days as well as some intermittent abdominal cramping. Worse with eating foods but not any one food or drink in particular. No known sick contacts however her fianc is an EMT. She does not know of any foods that she may have eaten that may have made her sick. She has been using Zofran which has helped some. She does not currently have any abdominal pain. TRAVEL OUTSIDE OF THE [place] IN LAST 30 DAYS: No - Related Data Allergies/Adverse Reactions: adhesive [Adhesive] Allergy (Verified 03/21/18 13:39) house dust Allergy (Verified 03/21/18 13:39) mold Allergy (Uncoded 03/21/18 13:39) Paper tape Allergy (Uncoded 03/21/18 13:39) pollen Allergy (Uncoded 03/21/18 13:39) Home Medications: Effexor Daily. Chlorthalidone. Loestrin Past Medical History - Social History Smoking Status: Former Smoker Chew tobacco use (# tins/day): No Frequency of alcohol use: Rare Drug Abuse: Marijuana Family History: CAD, Hyperlipidemia, Hypertension, Other - Congestive heart failure Patient has suicidal ideation: No Patient has homicidal ideation: No - Past Medical History Cardiac Medical History: Reports: Hx Congestive Heart Failure, Hx Hypertension Pulmonary Medical History: Reports: Hx Asthma Renal/ Medical History: Denies: Hx Peritoneal Dialysis GI Medical History: Reports: Hx Gastroesophageal Reflux Disease Musculoskeltal Medical History: Reports Hx Arthritis Psychiatric Medical History: Reports: Hx Bipolar Disorder, Hx Depression Past Surgical History: Reports: Hx Cholecystectomy - Immunizations Immunizations up to date: No Hx Diphtheria, Pertussis, Tetanus Vaccination: Yes Hx Pneumococcal Vaccination: 10/08/10 Review of Systems - Review of Systems Notes: See history of present illness for pertinent positive review of systems; otherwise all review of systems have been reviewed and are negative Physical Exam - Vital signs Vitals: Temp Pulse Resp BP Pulse Ox 98.0 F 89 20 137/79 H 97 03/21/18 13:41 03/21/18 13:41 03/21/18 13:41 03/21/18 13:41 03/21/18 13:41 - Notes Notes: PHYSICAL EXAMINATION: GENERAL: Well-appearing and in no acute distress. HEAD: Atraumatic, normocephalic. EYES: Pupils equal round and reactive to light, extraocular movements intact, sclera anicteric, conjunctiva are normal. ENT: nares patent, oropharynx clear without exudates. Moist mucous membranes. There is mild tenderness to palpation of the bilateral frontal sinuses as well as the right greater than left maxillary sinus NECK: Normal range of motion, supple without lymphadenopathy LUNGS: CTAB and equal. No wheezes rales or rhonchi. HEART: Regular rate and rhythm without murmurs ABDOMEN: Soft, no tenderness. No facial grimacing/wincing upon palpation. No guarding, no rebound. EXTREMITIES: Normal range of motion, no pitting edema. No cyanosis. NEUROLOGICAL: Cranial nerves grossly intact. Normal sensory/motor exams. PSYCH: Normal mood, normal affect. SKIN: Warm, Dry, normal turgor, no rashes or lesions noted Course - Re-evaluation Re-evalutation: 03/21/18 14:25 MEDICAL DECISION MAKING: Concern for viral gastroenteritis and viral sinusitis Low clinical suspicion for acute bacterial infections Will prescribe Reglan and Phenergan, no dose here since she drove here We will also give one-time dose of dexamethasone since steroids have helped her in the past Instructed follow-up PCP next day or few Patient understands and agrees to the plan of care - Vital Signs Vital signs: Temp Pulse Resp BP Pulse Ox 98.0 F 89 20 137/79 H 97 03/21/18 13:41 03/21/18 13:41 03/21/18 13:41 03/21/18 13:41 03/21/18 13:41 Discharge - Discharge Clinical Impression: Sinus pressure, Nausea vomiting and diarrhea Condition: Good Disposition: HOME, SELF-CARE Instructions: Antinausea Medication ([facility]) Additional Instructions: You were seen in the emergency department at [facility]. You received a one-time dose of long-acting dexamethasone steroids for your sinus pressure (since you have had this in the past and it has helped). If you were given any sedating medications, such as Reglan and Phenergan, for vomiting, be sure not to operate heavy machinery (example - driving) and be sure you are not too sedated to walk appropriately. Please followup with your primary physician in the next few days for further management/evaluation. Please return to the emergency department for worsening of symptoms or any symptom that you deem to be concerning or life-threatening. Thank you for allowing us to be part of your care. This documentation serves as your work/school note for your emergency department visit today. Prescriptions: Metoclopramide HCl [Reglan 10 mg Tablet] 1 tab PO Q8HP PRN #14 tablet PRN Reason: nausea/vomiting Promethazine HCl [Phenergan 25 mg Supp.rect] 1 supp CO Q6H #12 supp.rect Referrals: AJITH MANN, STENOCAPTIONER [Primary Care Provider] - Follow up as needed
== END 2018-03-21 14:32 | disposition home or self-care (01) ==
LOC: ER 13:38
DX: R11.2 Nausea with vomiting, unspecified (principal); R19.7 Diarrhea, unspecified; R09.81 Nasal congestion; R10.9 Unspecified abdominal pain; I50.9 Heart failure, unspecified; I10 Essential (primary) hypertension; Z90.49 Acquired absence of other specified parts of digestive tract
CPT/HCPCS: 99283; 96372; J1100

== ENCOUNTER 2019-11-10 12:56 | Emergency (ER) | payer BC ==
[2019-11-10] MEDS ORDERED: ACETAMINOPHEN 325 MG TABLET PO ONE (13:58)
--- NOTE | 2019-11-10 14:00 | ER Document Report ---
ED Extremity Problem, Lower - General Chief Complaint: Foot Injury Stated Complaint: TOE PAIN Time Seen by Provider: 11/10/19 13:54 Primary Care Provider: AJITH MANN NP [NURSE PRACTITIONER] - Follow up in 3-5 days TYLER ALBERTS DPM [ACTIVE STAFF] - Follow up as needed Mode of Arrival: Ambulatory Information source: Patient Notes: 34-year-old female presented to ED for complaint of pain to the ball of her foot and second third and fourth toe. She states she walked into a bolivar chair last night and has had pain to her foot since then. She states she has to walk on the heel of her foot to walk. She also has excessive swelling to the ankle. She states she has been walking on the side of her foot and the back of her foot due to the pain in the front of her foot and her toes. We will get x-rays of foot and ankle and reevaluate patient. There is bruising and swelling to the second third and fourth toe. TRAVEL OUTSIDE OF THE [place] IN LAST 30 DAYS: No - HPI Patient complains to provider of: Injury, Pain, Swelling Location: Ankle, Foot, 2nd Toe, 3rd Toe, 4th Toe Occurred: Yesterday Where: Home, Indoors Onset/Duration: Gradual Quality of pain: Achy, Pressure Severity: Moderate Pain Level: 4 Context: Other Recent injury: Yes - Ran into a game in chair without get Associated symptoms: Painful ambulation - x-rays of the foot and ankle on Exacerbated by: Walking - 1 a wheelchair surgery not walking anymore Relieved by: Elevation, Ice, Rest - Related Data Allergies/Adverse Reactions: adhesive [Adhesive] Allergy (Verified 11/10/19 13:53) house dust Allergy (Verified 11/10/19 13:53) mold Allergy (Uncoded 11/10/19 13:53) Paper tape Allergy (Uncoded 11/10/19 13:53) pollen Allergy (Uncoded 11/10/19 13:53) Past Medical History - General Information source: Patient - Social History Smoking Status: Former Smoker Frequency of alcohol use: Social Drug Abuse: None Occupation: [employer] for the [employer] Lives with: Friend Family History: CAD, Hyperlipidemia, Hypertension, Other - Congestive heart failure Patient has suicidal ideation: No Patient has homicidal ideation: No - Past Medical History Cardiac Medical History: Reports: Hx Congestive Heart Failure, Hx Hypertension Pulmonary Medical History: Reports: Hx Asthma EENT Medical History: Reports: None Neurological Medical History: Reports: None Endocrine Medical History: Reports: None Renal/ Medical History: Reports: None. Denies: Hx Peritoneal Dialysis Malignancy Medical History: Reports: None GI Medical History: Reports: Hx Gastroesophageal Reflux Disease Musculoskeletal Medical History: Reports Hx Arthritis, Reports Hx Musculoskele tino Trauma Skin Medical History: Reports None Psychiatric Medical History: Reports: Hx Bipolar Disorder, Hx Depression Traumatic Medical History: Reports: None Infectious Medical History: Reports: None Past Surgical History: Reports: Hx Cholecystectomy - Immunizations Immunizations up to date: No Hx Diphtheria, Pertussis, Tetanus Vaccination: Yes Hx Pneumococcal Vaccination: 10/08/10 Review of Systems - Review of Systems Constitutional: No symptoms reported EENT: No symptoms reported Cardiovascular: No symptoms reported Respiratory: No symptoms reported Gastrointestinal: No symptoms reported Genitourinary: No symptoms reported Female Genitourinary: No symptoms reported Musculoskeletal: Ankle swelling - Foot and ankle with propofol to second third and fourth Skin: Change in color Hematologic/Lymphatic: No symptoms reported Neurological/Psychological: No symptoms reported -: Yes All other systems reviewed and negative Physical Exam - Vital signs Vitals: Temp Pulse Resp BP Pulse Ox 98.3 F 98 20 169/91 H 98 11/10/19 13:20 11/10/19 13:20 11/10/19 13:20 11/10/19 13:20 11/10/19 13:20 Interpretation: Normal - General General appearance: Appears well, Alert - HEENT Head: Normocephalic, Atraumatic Eyes: Normal Pupils: PERRL - Respiratory Respiratory status: No respiratory distress Chest status: Nontender Breath sounds: Normal Chest palpation: Normal - Cardiovascular Rhythm: Regular Heart sounds: Normal auscultation Murmur: No - Abdominal Inspection: Normal Distension: No distension Bowel sounds: Normal Tenderness: Nontender Organomegaly: No organomegaly - Back Back: Normal, Nontender - Extremities General upper extremity: Normal inspection, Nontender, Normal color, Normal ROM, Normal temperature General lower extremity: Normal ROM, Normal temperature. No: Nini's sign Ankle: Edema. No: Tender, Abrasion, Deformity, Ecchymosis, Instability, Laceration, Limited ROM, Positive Costello's test Foot: Tender, Ecchymosis - Second third and fourth toe, Edema - Second third and fourth toe, Navicular tenderness, No evidence of FB. No: Abrasion, Deformity, Instability, Laceration, Metatarsal compress. pain, Nail injury, Puncture wound, Tender 5th metatarsal, Unable to bear weight - Painful to bear weight but is able to bear weight - Neurological Neuro grossly intact: Yes Cognition: Normal Orientation: AAOx4 [place] Coma Scale Eye Opening: Spontaneous [place] Coma Scale Verbal: Oriented [place] Coma Scale Motor: Obeys Commands [place] Coma Scale Total: 15 Speech: Normal Motor strength normal: LUE, RUE, LLE, RLE Sensory: Normal - Psychological Associated symptoms: Normal affect, Normal mood - Skin Skin Temperature: Warm Skin Moisture: Dry Skin Color: Normal, Ecchymosis Location of irregularity: Extremities Irregularity with: Swelling, Tenderness Course - Re-evaluation Re-evalutation: 11/10/19 22:06 X-rays discussed with patient written report of x-rays given to patient. Patient was instructed to follow-up with primary care and/or orthopedics for her bruised contused toes and foot there was no fractures noted. - Vital Signs Vital signs: Temp Pulse Resp BP Pulse Ox 98.8 F 84 16 137/63 H 97 11/10/19 15:41 11/10/19 15:41 11/10/19 15:41 11/10/19 15:41 11/10/19 15:41 - Diagnostic Test Radiology reviewed: Image reviewed, Reports reviewed Discharge - Discharge Clinical Impression: Contusion of left great toe without damage to nail, initial encounter Foot contusion Qualifiers: Encounter type: initial encounter Laterality: left Qualified Code(s): S90.32XA - Contusion of left foot, initial encounter Condition: Stable Disposition: HOME, SELF-CARE Additional Instructions: CONTUSION: Your injury has resulted in a contusion -- a crushing of the deep tissues. No injury to important structures was detected during the physician's exam. Contusions vary in the amount of pain they cause, and in the length of time required for healing. Typically, the area will become bruised, and will remain painful to touch for two or three weeks. However, most patients are back to working and playing within a few days. After the initial period of rest and cold-packs, your symptoms (together with the doctor's recommendations) will determine how rapidly you can get back to full activity. Usually this means "do what feels okay, but don't do things that hurt." If re-examination was recommended, it's important to follow up as instructed. Call the doctor or return any time if pain increases, if swelling becomes severe, if you develop numbness or weakness in an injured extremity, or if any other alarming symptoms occur. USE OF TYLENOL (ACETAMINOPHEN): Acetaminophen may be taken for pain relief or fever control. It's much safer than aspirin, offering a wider range of "safe" dosages. It is safe during . Some brand names are Tylenol, Panadol, Datril, Anacin 3, Tempra, and Liquiprin. Acetaminophen can be repeated every four hours. The following are maximum recommended dosages: WEIGHT Dose Drops Elixir Chewable(80mg) (LBS.) drprs=droppers tsp=teaspoon 6 40 mg 0.4 ml (1/2) 6-11 80 mg 0.8 ml (full) tsp 1 tab 12-16 120 mg 1 1/2 drprs 3/4 tsp 1 1/2 tabs 17-23 160 mg 2 drprs 1 tsp 2 tabs 24-30 240 mg 3 drprs 1 1/2 tsp 3 tabs 30-35 320 mg 2 tsp 4 tabs 36-41 360 mg 2 1/4 tsp 4 1/2 tabs 42-47 400 mg 2 1/2 tsp 5 tabs 48-53 480 mg 3 tsp 6 tabs 54-59 520 mg 3 1/4 tsp 6 1/2 tabs 60-64 560 mg 3 1/2 tsp 7 tabs 65-70 600 mg 3 3/4 tsp 7 1/2 tabs 71-76 640 mg 4 tsp 8 tabs 77-82 720 mg 4 1/2 tsp 9 tabs 83-88 800 mg 5 tsp 10 tabs >89 pounds or adults 650 mg to 900 mg Acetaminophen can be repeated every four hours. Maximum dose not to exceed 4000 mg a day. These maximum recommended dosages are slightly higher than the dosages written on the product container, but these dosages are very safe and below the toxic dosage for acetaminophen. Ibuprofen Ibuprofen is an excellent, safe drug for pain control. In addition, it has potent antiinflammatory effects which are beneficial, especially in the treatment of injuries, arthritis, or tendonitis. It's best to take ibuprofen with food. Persons with ulcer disease or allergy to aspirin should notify their physician of this before taking ibuprofen. Take the medication exactly as prescribed. Don't take additional doses unless instructed to do so by your doctor. If you develop wheezing, shortness of breath, hives, faintness, stomach pain, vomiting, or dark black stools, return for re-evaluation at once. Ice & Elevation Apply ice packs frequently against the painful area. Many different schedules are recommended, such as "20 minutes on, 20 minutes off" or "one hour ice, two hours rest." If you need to work, you may need to go longer between ice treatments. You should plan to have the area ice packed AT LEAST one-fourth of the time. The ice should be applied over the wrap, tape, or splint, or over a layer of cloth -- not directly against the skin. Some ice bags have a built-in cloth and can be put directly on the skin. Your injured part should be elevated as much as possible over the next 48 hours. Try to keep the injury above the level of the heart. Avoid use of the injured area. Elevation and rest will decrease the swelling. FOLLOW-UP CARE: If you have been referred to a physician for follow-up care, call the physicians office for an appointment as you were instructed or within the next two days. If you experience worsening or a significant change in your symptoms, notify the physician immediately or return to the Emergency Department at any time for re-evaluation. Forms: Elevated Blood Pressure, Return to Work Referrals: AJITH MANN NP [NURSE PRACTITIONER] - Follow up in 3-5 days TYLER ALBERTS DPM [ACTIVE STAFF] - Follow up as needed
--- NOTE | 2019-11-10 14:29 | RADIOLOGY REPORT (SQ) ---
EXAM DESCRIPTION: ANKLE LEFT COMPLETE COMPLETED DATE/TIME: 11/10/2019 2:19 pm REASON FOR STUDY: Pain and swelling with bruising to toes COMPARISON: None. NUMBER OF VIEWS: Three views. TECHNIQUE: AP, lateral, and oblique radiographic images acquired of the left ankle. LIMITATIONS: None. FINDINGS: MINERALIZATION: Normal. BONES: No acute fracture or dislocation. No worrisome bone lesions. Superior calcaneal enthesophyte . Midfoot osteophytosis and subchondral cystic change. JOINTS: No effusions. SOFT TISSUES: Soft tissue swelling about the ankle, greatest medially. OTHER: Lower extremity subcutaneous edema. IMPRESSION: Soft tissue swelling about the ankle without evidence of acute bony abnormality. TECHNICAL DOCUMENTATION: JOB ID: [id number] [employer]- All Rights Reserved Reading location - IP/workstation name: [email or web address]
--- NOTE | 2019-11-10 14:31 | RADIOLOGY REPORT (SQ) ---
EXAM DESCRIPTION: FOOT LEFT COMPLETE COMPLETED DATE/TIME: 11/10/2019 2:19 pm REASON FOR STUDY: Pain and swelling with bruising to toes COMPARISON: 06/17/2015 NUMBER OF VIEWS: Three views. TECHNIQUE: AP, lateral and oblique radiographic images acquired of the left foot. LIMITATIONS: None. FINDINGS: MINERALIZATION: Normal. BONES: No acute fracture or dislocation. Midfoot osteophytosis and subchondral cystic change, simila r to prior. JOINTS: No dislocation. Midfoot osteophytosis pre SOFT TISSUES: Soft tissue swelling about the forefoot and ankle. OTHER: Subcutaneous edema. IMPRESSION: Soft tissue swelling about the foot and ankle without evidence of acute bony abnormality . TECHNICAL DOCUMENTATION: JOB ID: [id number] [employer] All Rights Reserved Reading location - IP/workstation name: [email or web address]
[2019-11-10 15:47] VITALS: BP 137/63
== END 2019-11-10 15:59 | disposition home or self-care (01) ==
LOC: ER 12:56
DX: S90.112A Contusion of left great toe without damage to nail, initial encounter (principal); S90.32XA Contusion of left foot, initial encounter; S90.129A Contusion of unspecified lesser toe(s) without damage to nail, initial encounter; M79.672 Pain in left foot; M25.473 Effusion, unspecified ankle; W22.03XA Walked into furniture, initial encounter; Y92.009 Unspecified place in unspecified non-institutional (private) residence as the place of occurrence of the external cause; I10 Essential (primary) hypertension; J45.909 Unspecified asthma, uncomplicated; Z91.048 Other nonmedicinal substance allergy status; Z87.891 Personal history of nicotine dependence
CPT/HCPCS: 99283

== ENCOUNTER 2020-05-26 14:40 | Emergency (ER) | payer BC ==
--- NOTE | 2020-05-26 16:19 | ER Document Report ---
ED Medical Screen (RME) - General Chief Complaint: Low Blood Sugar Stated Complaint: BLOOD SUGAR PROBLEMS Time Seen by Provider: 05/26/20 16:13 Mode of Arrival: Ambulatory Information source: Patient Notes: HPI; 35-year-old female was sent to the emergency room after being called by [facility] today and told that her potassium was 2.9. Patient had preoperative blood work drawn for gastric bypass surgery. Patient is asymptomatic. PE: Alert and oriented x3. Lungs: Clear to auscultation without rales, rhonchi, wheezes. Heart: Regular rate and rhythm without murmurs, rubs, gallops. I have greeted and performed a rapid initial assessment of this patient. A comprehensive ED assessment and evaluation of the patient, analysis of test results and completion of the medical decision making process will be conducted by additional ED providers. I have specifically instructed the patient or family members with the patient to immediately return to any nursing staff should anything change in the patient's condition or with their chief complaint. TRAVEL OUTSIDE OF THE [place] IN LAST 30 DAYS: No - Related Data Allergies/Adverse Reactions: adhesive [Adhesive] Allergy (Verified 05/26/20 16:10) house dust Allergy (Verified 05/26/20 16:10) No Known Drug Allergies Allergy (Verified 05/26/20 16:10) mold Allergy (Uncoded 05/26/20 16:10) Paper tape Allergy (Uncoded 05/26/20 16:10) pollen Allergy (Uncoded 05/26/20 16:10) Past Medical History - Social History Family history: CAD, DM, Malignancy - Past Medical History Cardiac Medical History: Reports: Hx Congestive Heart Failure, Hx Hypertension Pulmonary Medical History: Reports: Hx Asthma Renal/ Medical History: Denies: Hx Peritoneal Dialysis GI Medical History: Reports: Hx Gastroesophageal Reflux Disease Musculoskeltal Medical History: Reports Hx Arthritis, Reports Hx Musculoskeletal Trauma Psychiatric Medical History: Reports: Hx Bipolar Disorder, Hx Depression Past Surgical History: Reports: Hx Cholecystectomy - Immunizations Immunizations up to date: No Hx Diphtheria, Pertussis, Tetanus Vaccination: Yes Physical Exam - Vital signs Vitals: Temp Pulse Resp BP Pulse Ox 98.5 F 99 15 158/103 H 99 05/26/20 14:56 05/26/20 14:56 05/26/20 14:56 05/26/20 14:56 05/26/20 14:56 Course - Vital Signs Vital signs: Temp Pulse Resp BP Pulse Ox 98.5 F 99 15 158/103 H 99 05/26/20 14:56 05/26/20 14:56 05/26/20 14:56 05/26/20 14:56 05/26/20 14:56
[2020-05-26 16:48] LABS: ABSOLUTE BASOPHILS # (AUTO) 0.1 10^3/uL (0.0-0.2); ABSOLUTE EOSINOPHILS # (AUTO) 0.1 10^3/uL (0.0-0.6); ABSOLUTE LYMPHOCYTES (AUTO) 2.8 10^3/uL (0.5-4.7); ABSOLUTE MONOCYTES (AUTO) 0.6 10^3/uL (0.1-1.4); ABSOLUTE NEUT (AUTO) 7.3 10^3/uL (1.7-8.2); BASOPHILS % (AUTO) 0.8 % (0-2); EOSINOPHILS % (AUTO) 1.2 % (0-6); HEMATOCRIT 38.1 % (36.0-47.0); HEMOGLOBIN 12.6 g/dL (12.0-15.5); LYMPHOCYTES % (AUTO) 25.9 % (13-45); MEAN CORPUSCULAR HEMOGLOBIN 26.6 pg (27.0-33.4); MEAN CORPUSCULAR VOLUME 80 fl (80-97); MONOCYTES % (AUTO) 5.6 % (3-13); PLATELET COUNT 278 10^3/uL (150-450); RED BLOOD COUNT 4.74 10^6/uL (3.72-5.28); RED CELL DISTRIBUTION WIDTH 15.9 % (11.5-14.0); SEGMENTED NEUTROPHILS % (AUTO) 66.5 % (42-78); TOTAL CELLS COUNTED % (AUTO) 100 %
[2020-05-26 17:14] LABS: ALBUMIN 4.2 g/dL (3.5-5.0); ALKALINE PHOSPHATASE 60 U/L (38-126); ANION GAP 9 (5-19); ASPARTATE AMINO TRANSFERASE 31 U/L (14-36); BILIRUBIN,TOTAL 0.3 mg/dL (0.2-1.3); BLOOD UREA NITROGEN 11 mg/dL (7-20); CALCIUM 9.3 mg/dL (8.4-10.2); CARBON DIOXIDE 31 mmol/L (22-30); CHLORIDE 96 mmol/L (98-107); GLUCOSE 105 mg/dL (75-110); POTASSIUM 3.8 mmol/L (3.6-5.0); TOTAL PROTEIN 7.3 g/dL (6.3-8.2)
--- NOTE | 2020-05-26 19:06 | ER Document Report ---
ED General - General Chief Complaint: Abnormal Lab Results Stated Complaint: BLOOD SUGAR PROBLEMS Time Seen by Provider: 05/26/20 16:13 Mode of Arrival: Ambulatory TRAVEL OUTSIDE OF THE [place] IN LAST 30 DAYS: No - HPI Notes: Patient is a 35-year-old female who presents to the ER for evaluation. On May 13, she had preoperative labs for assessment prior to gastric bypass surgery. She was contacted and told her potassium was low. She was sent here for recheck and further evaluation, treatment if necessary. The patient denies any pain or complaints. She is eating and drinking normally. No palpitations, no muscle pain, no weakness. - Related Data Allergies/Adverse Reactions: adhesive [Adhesive] Allergy (Verified 05/26/20 16:10) house dust Allergy (Verified 05/26/20 16:10) No Known Drug Allergies Allergy (Verified 05/26/20 16:10) mold Allergy (Uncoded 05/26/20 16:10) Paper tape Allergy (Uncoded 05/26/20 16:10) pollen Allergy (Uncoded 05/26/20 16:10) Home Medications: Chlorthalidone, losartan, antidepressant medications Past Medical History - General Information source: Patient - Social History Smoking Status: Former Smoker Chew tobacco use (# tins/day): No Frequency of alcohol use: Occasional Drug Abuse: None Family History: CAD, Hyperlipidemia, Hypertension, Other - Congestive heart failure Patient has homicidal ideation: No - Past Medical History Cardiac Medical History: Reports: Hx Congestive Heart Failure, Hx Hypertension Pulmonary Medical History: Reports: Hx Asthma Renal/ Medical History: Denies: Hx Peritoneal Dialysis GI Medical History: Reports: Hx Gastroesophageal Reflux Disease Musculoskeletal Medical History: Reports Hx Arthritis, Reports Hx Musculoskeletal Trauma Psychiatric Medical History: Reports: Hx Bipolar Disorder, Hx Depression Past Surgical History: Reports: Hx Cholecystectomy - Immunizations Immunizations up to date: No Hx Diphtheria, Pertussis, Tetanus Vaccination: Yes Hx Pneumococcal Vaccination: 10/08/10 Review of Systems - Review of Systems Constitutional: No symptoms reported EENT: No symptoms reported Cardiovascular: No symptoms reported Respiratory: No symptoms reported Gastrointestinal: No symptoms reported Genitourinary: No symptoms reported Musculoskeletal: No symptoms reported Skin: No symptoms reported Neurological/Psychological: No symptoms reported Physical Exam - Vital signs Vitals: Temp Pulse Resp BP Pulse Ox 98.5 F 99 15 158/103 H 99 05/26/20 14:56 05/26/20 14:56 05/26/20 14:56 05/26/20 14:56 05/26/20 14:56 - Notes Notes: Vital signs reviewed, please refer to chart. Head is normocephalic, atraumatic. Pupils equal round, reactive to light. Neck is supple without meningismus. Heart is regular rate and rhythm. Lungs are clear to auscultation bilaterally. Abdomen is soft, nontender, normoactive bowel sounds throughout. Extremities without cyanosis, clubbing. Posterior calves are nontender. Peripheral pulses are equal. Skin is warm and dry. Course - Re-evaluation Re-evalutation: 05/26/20 19:05 Patient presents to the emergency department for evaluation. She had laboratory investigations performed nearly 2 weeks ago which showed hypokalemia. Labs were repeated today and her potassium was normal. The patient has no symptoms. She is given a copy of her laboratory investigations to bring to [facility]. Otherwise, she is to follow-up with her surgeons as scheduled. - Vital Signs Vital signs: Temp Pulse Resp BP Pulse Ox 98.5 F 99 15 158/103 H 99 05/26/20 14:56 05/26/20 14:56 05/26/20 14:56 05/26/20 14:56 05/26/20 14:56 - Laboratory Result Diagrams: 05/26/20 16:28 05/26/20 16:28 Laboratory results interpreted by me: 05/26/20 05/26/20 16:28 16:28 WBC 11.0 H MCH 26.6 L RDW 15.9 H Sodium 135.5 L Chloride 96 L Carbon Dioxide 31 H Discharge - Discharge Clinical Impression: Laboratory recheck Condition: Stable Disposition: HOME, SELF-CARE Additional Instructions: Your labs were rechecked today and your potassium was within normal limits. You have been given a copy of your lab results, please bring these to your surgeon. Return to the emergency department with worsening or new concerning symptoms of any sort.
[2020-05-26 19:21] VITALS: BP 151/83
== END 2020-05-26 19:21 | disposition home or self-care (01) ==
LOC: ER 14:40
DX: E87.6 Hypokalemia (principal); Z98.84 Bariatric surgery status; Z88.8 Allergy status to other drugs, medicaments and biological substances; Z79.899 Other long term (current) drug therapy; Z87.891 Personal history of nicotine dependence; I50.9 Heart failure, unspecified; I11.0 Hypertensive heart disease with heart failure; J45.909 Unspecified asthma, uncomplicated
CPT/HCPCS: 36415; 80053; 83735; 84703; 85025; 99283